=== PATIENT | female | born 1985 | race Caucasian/White ===

== ENCOUNTER → 2018-08-25 | Outpatient (CLI) | payer BC ==
[~2018-08-25] MED LIST: ADDERALL5 MG PO; BIRTH CONTROL; CORGARD20 MG; CORGARD40 MG PO; MOTRIN 800800 MG/TAB PO; PHENERGAN 25 TA25 MG PO; SEASONIQUE1 TAB; VANCOCIN H125 MG/CAP PO; VANCOCIN H250 MG/CAP PO; VANCOCIN HCL500 MG IV; ZOLOFT20 MG/ML
== END ==
LOC: MC.RAD 14:38
DX: N60.01 Solitary cyst of right breast (principal)

== ENCOUNTER → 2018-10-27 | Outpatient (CLI) | payer BC | LOC: MC.RAD 07:20 | DX: N60.01 Solitary cyst of right breast (principal) ==